=== PATIENT | female | born 1960 | race Caucasian/White ===

== ENCOUNTER → 2017-10-19 | Outpatient (CLI) | payer SELFPAY | LOC: COL.LAB 15:01 | DX: Z96.641 Presence of right artificial hip joint (principal); Z96.651 Presence of right artificial knee joint ==

== ENCOUNTER → 2019-03-01 | Outpatient (CLI) | payer OTHER | LOC: MC.RAD 10:26 | DX: Z12.31 Encounter for screening mammogram for malignant neoplasm of breast (principal); N63.10 Unspecified lump in the right breast, unspecified quadrant; N63.20 Unspecified lump in the left breast, unspecified quadrant ==

== ENCOUNTER → 2023-04-29 | Outpatient (CLI) | payer OTHER | LOC: MC.RAD 06:58 | DX: Z12.31 Encounter for screening mammogram for malignant neoplasm of breast (principal); N63.20 Unspecified lump in the left breast, unspecified quadrant ==